=== PATIENT | male | born 1985 | race Caucasian/White ===

== ENCOUNTER 2019-09-05 07:57 | Emergency (ER) | payer OTHER ==
[~2019-09-05] VITALS: Ht 182.9 cm; Wt 113.5 kg
--- NOTE | 2019-09-05 09:26 | REP ---
RIGHT SHOULDER, THREE VIEWS: There is no evidence of an acute fracture, dislocation or intrinsic bone disease. IMPRESSION: No fracture or dislocation. Electronically Signed by Pipe Martino MD 09/05/2019 10:52 A
[2019-09-05 10:21] VITALS: BP 135/92
== END 2019-09-05 10:34 | disposition home or self-care (01) ==
LOC: M ED 07:57
DX: R07.2 Precordial pain (principal); M25.511 Pain in right shoulder

== ENCOUNTER → 2020-08-04 | Outpatient (CLI) | payer OTHER ==
--- NOTE | 2020-08-04 14:44 | PFTRPT ---
Site: [facility], [address] [place] [address], [id number] ID: [id number] Name: ASYA LOPEZ Visit Date: 08/04/2020 Second ID: [id number] Referring Doctor: Lisa Jones PA-C Reviewing Doctor: Won Brown MD Colorer: July DIAS RRT Age: 35 : 1985 Sex: Male Race: Height: 72.00 Inches Weight: 235.00 Lbs BSA: 2.28 Order IDs: [id number] Requested Test(s): <RESP-PFT.PFT B/A> Diagnosis: SOB of albuterol for post bronchodilator. The results of this test meet the ATS standards for acceptability and repeatability. Review Status: Not Reviewed Pre-Bronch Post-Bronch Pred Actual %Pred Actual %Chng SPIROMETRY FVC (L) 5.76 6.57 114 6.69 1 FEV1 (L) 4.64 5.69 122 6.04 6 FEV1/FVC (%) 81 87 106 90 4 FEF 25% (L/sec) 8.91 8.27 92 9.58 15 FEF 50% (L/sec) 5.84 6.78 116 6.87 1 FEF 75% (L/sec) 2.21 3.88 175 4.88 25 FEF 25-75% (L/sec) 4.49 5.83 129 6.80 16 FEF Max (L/sec) 10.71 10.54 98 10.24 -2 FIVC (L) 6.44 6.58 2 FIF 50% (L/sec) 5.41 4.14 76 4.67 12 FIF Max (L/sec) 4.92 4.97 MVV (L/min) 181 166 91 Expiratory Time (sec) 6.48 6.49 Back Extrap Vol (L) 0.19 0.20 4 Time To FEFmax (sec) 0.197 0.095 -51 LUNG VOLUMES SVC (L) 5.51 6.78 123 IC (L) 3.67 4.60 125 ERV (L) 1.84 2.18 118 TGV (L) 3.64 4.19 115 RV (Pleth) (L) 1.80 2.02 112 TLC (Pleth) (L) 7.31 8.80 120 RV/TLC (Pleth) (%) 24 23 95 DIFFUSION DLCOunc (ml/min/mmHg) 35.37 37.93 107 DL/VA (ml/min/mmHg/L) 4.84 4.76 98 VA (L) 7.31 7.97 109 BHT (sec) 10.44 IVC (L) 6.35 TLC (SB) (L) 8.12 AIRWAYS RESISTANCE Raw (cmH2O/L/s) 1.45 0.50 34 Gaw (L/s/cmH2O) 1.03 2.00 194 sRaw (cmH2O*s) 4.76 2.00 41 sGaw (1/cmH2O*s) 0.20 0.51 252
== END ==
LOC: M CARPUL 14:12
PROVIDERS: ATTEND Physician Assistant
DX: R06.02 Shortness of breath (principal)

== ENCOUNTER 2021-11-12 02:33 | Emergency (ER) | payer OTHER ==
[~2021-11-12] VITALS: Ht 182.9 cm; Wt 110.0 kg
[2021-11-12 02:34] VITALS: BP 146/92
== END 2021-11-12 04:07 | disposition left against medical advice (07) ==
LOC: M ED 02:33
DX: Z53.21 Procedure and treatment not carried out due to patient leaving prior to being seen by health care provider (principal)